=== PATIENT | male | born 1965 | race Caucasian/White ===

== ENCOUNTER 2019-10-22 05:39 | Day surgery (SDC) | payer BC ==
[2019-10-21 11:27] LABS: BASOPHILS 0.5 % (0-2); EOSINOPHILS 2.2 % (0-7); HEMATOCRIT 45.7 % (42.0-54.0); HEMOGLOBIN 15.3 g/dL (13.5-17.5); LYMPHOCYTES 31.4 % (15-50); MCH 30.4 pg (26.0-34.0); MCHC 33.5 g/dL (31.0-37.0); MCV 90.7 fL (80.0-100.0); MEAN PLATELET VOLUME 10.4 fL (7.4-10.4); MONOCYTES 10.1 % (2-11); NEUTROPHILS 55.8 % (40-80); PLATELET COUNT 251 10x3/uL (130-400); RBC 5.04 10x6/uL (4.20-6.10); RDW 13.3 % (11.5-14.5)
[2019-10-21 11:54] LABS: ANION GAP 13.6 mmol/L (8-16); CALCIUM 9.5 mg/dL (8.5-10.1); CARBON DIOXIDE 27.8 mmol/L (21.0-32.0); CREATININE - SERUM 1.4 mg/dL (0.6-1.3); POTASSIUM - SERUM 4.4 mmol/L (3.5-5.1)
[~2019-10-22] VITALS: Ht 180.3 cm; Wt 115.2 kg
--- NOTE | ~2019-10-22 | OP ---
PATIENT NAME: PRIYANK VINCENT MEDICAL RECORD: [id number] :65 LOCATION:[facility] ADMISSION DATE: SURGEON: JL TELLEZ MD DATE OF OPERATION: 10/22/2019 PREOPERATIVE DIAGNOSES: 1. Left inguinal hernia. 2. Ventral hernia. 3. Hypertension. POSTOPERATIVE DIAGNOSES: 1. Incarcerated left inguinal hernia. 2. Ventral hernia. 3. Hypertension. PROCEDURE: 1. Left inguinal hernia repair with large PHS mesh. 2. Ventral hernia repair with 4.[address] mesh. SURGEON: Jl Tellez MD REPORT OF PROCEDURE: The patient's abdomen and left groin were prepped and draped in sterile fashion. An oblique incision was made above the inguinal ligament. Electrocautery was used to dissect through the subcutaneous tissues to the external oblique fascia. This fascia was opened up to the external ring using electrocautery. We were able to get around the spermatic cord and this massive hernia defect. The hernia sac contained a large amount of fatty tissue and what appeared to be some bile, we tried to vigorously to get this to reduce, but was never able to. We eventually dissected the hernia sac from the spermatic cord and the span spermatic cord was protected by placing a Ripley around it. Once the hernia sac was freed up, we again tried to reduce the hernia contents without success. We eventually had to open up the hernia sac and at this point, we were able to see the patient's sigmoid colon was stuck to the sides of the hernia sac and the hernia defect was small enough to make it very difficult to reduce. We eventually were able to free up the sigmoid colon from the hernia sac and ligated the hernia sac down close to the fascial edges. At this point, we were able to reduce the sigmoid colon back into the abdominal cavity. The hernia sac was then closed with a running 2-0 Vicryl. We opened up the preperitoneal space of Retzius and then inserted a large PHS mesh. This mesh was sutured down in multiple areas using interrupted 0 Vicryls. The wound was then irrigated out with normal saline. The ilioinguinal nerve was found and high ligated. The external oblique fascia was closed with running 2-0 Vicryl, Niranjan's was closed with interrupted 3-0 Vicryl, and the skin was closed with running subcutaneous 5-0 Monocryl. We then infused 10 mL of 0.25% Marcaine with epinephrine into the surrounding tissues. We then approached the patient's umbilical region. A semicircular incision was made on the inferior aspect of the umbilicus. Electrocautery was used to dissect through the subcutaneous tissues down to the fascia. We then came around the umbilical stalk and there was noted to be a hernia defect, right under the umbilicus and another hernia defect just above it. We were able to transect through the hernia sac underneath the umbilicus and reduce the fatty contents within it. As we went superior to this, there was another hernia defect present in the midline. We were able to free up this hernia sac and reduce it into the abdominal cavity. There was a small fascial bridge present between the two and this was taken down using electrocautery. I was then able to manipulate the tissues off of the OPERATIVE REPORT [id number] PRIYANK VINCENT posterior aspect of the anterior fascia and then freed up the fatty tissue off of the anterior aspect of the fascia. A 4.[address] mesh was inserted in an underlay fashion and sutured down on all sides using a multiple interrupted 0 Prolenes. We then irrigated out the wound and closed the fascia transversely overlying the mesh using running 0 Vicryl. The umbilicus was tacked down using a single interrupted 3-0 Vicryl and the subcutaneous tissues were reapproximated with interrupted 3-0 Vicryl. The skin was closed with running subcutaneous 5-0 Monocryl. A 10 mL of 0.25% Marcaine plain was infused into the surrounding tissues and the wound was dressed appropriately. COMPLICATIONS: None. CONDITION: Stable. ANESTHESIA: General endotracheal and local. BLOOD LOSS: Minimal. TRANSINT:[id number] Voice Confirmation ID: [id number] DOCUMENT ID: [id number] JL TELLEZ MD CC: ELAINA MARQUIS MD [id number] DICTATION DATE: 10/22/19 1025 CASER: 10/22/19 1209 [facility] [address] [id number]
[~2019-10-22 05:39] MED LIST: LISINOPRIL-HCT1 EAC8 PO; MOBIC7.5 MG PO
[2019-10-22 06:32] VITALS: BP 135/87; Ht 180.3 cm; Wt 115.2 kg
--- NOTE | 2019-10-22 09:01 | NUR ---
PATIENT NOTED TO HAVING CLEAN DRY BANDAGES ON BILATERAL ANKLES, STATED HE HAD STAPH, BUT WELL NOW WITH HEALING AND NO DRAINAGE, DR TELLEZ AWARE OF THIS, VYETTE.
[2019-10-22] MEDS ORDERED: HYDROCODON-ACE1 EA10 PO (10:12)
--- NOTE | 2019-10-22 11:37 | NUR ---
1121-REC'D FROM RR. AWAKE AND ALERT.VSS.REPORTS PAIN 2/10.DRESSING X 1 TO ABD CDI,DRESSING X 2 WITH 3 SMALL RED BLOOD AREAS MARKED IN RR. WILL MONITOR. ICE WATER TO BEDSIDE,CL IN EASY REACH. FATHER AT BEDSIDE. REVIEWED DISCHARGE CRITERIA.VERBALIZED UNDERSTANDING.
--- NOTE | 2019-10-22 15:07 | NUR ---
PATIENT AMBULATES TO BATHROOM WITHOUT UNSTEADINESS OR DIZZINESS AND VOIDS LARGE AMOUNT IN TOILET. PIV DC'D WITH TIP INTACT. DISCHARGE INSTRUCTIONS REVIEWED WITH PATIENT . 1514 PATIENT DRESSED IN PERSONAL CLOTHING, PATIENT DISCHARGED HOME VIA WHEELCHAIR TO PRIVATE VEHICLE WITH FAMILY MEMBER
== END 2019-10-22 15:14 | disposition home or self-care (01) ==
LOC: D.OPS 05:39
PROVIDERS: ATTEND Surgery
DX: K40.90 Unilateral inguinal hernia, without obstruction or gangrene, not specified as recurrent (principal); K43.9 Ventral hernia without obstruction or gangrene; I10 Essential (primary) hypertension; Z86.73 Personal history of transient ischemic attack (TIA), and cerebral infarction without residual deficits